=== PATIENT | female | born 1955 | race Caucasian/White ===

== ENCOUNTER 2016-12-01 13:06 | Emergency (ER) | payer OTHER ==
[~2016-12-01] VITALS: Ht 162.6 cm; Wt 79.4 kg
[~2016-12-01 13:06] MED LIST: ASPIRIN81 M2 PO; CENTRUM SILVER1 EAC4 PO; CITRACAL + BON1 EACH PO; DHEA50 MG PO; FISH OIL 1,001000 M2 PO; FLEXERIL PO; IBUPROFEN 800800 M1 PO; LISINOPRIL20 MG PO; LYRICA 50 MG50 MG PO; PREVACID30 MG PO; TOPROL XL100 MG PO; TRAMADOL 50 MG50 MG PO; VENTOLIN HFA 1818 GM INH; VITAMIN B-12500 MCG PO; VITAMIN D1000 UNI1 PO
[2016-12-01] MEDS ORDERED: NAPROSYN500 MG PO (16:01)
[2016-12-01] MEDS ORDERED: NORFLEX100 MG PO (16:01)
[2016-12-01 16:10] VITALS: BP 158/77
== END 2016-12-01 16:11 | disposition home or self-care (01) ==
LOC: ER 13:06
DX: S16.1XXA Strain of muscle, fascia and tendon at neck level, initial encounter (principal); I10 Essential (primary) hypertension; K21.9 Gastro-esophageal reflux disease without esophagitis; E78.00 Pure hypercholesterolemia, unspecified; M79.7 Fibromyalgia; Z90.710 Acquired absence of both cervix and uterus; Z88.5 Allergy status to narcotic agent; V49.40XA Driver injured in collision with unspecified motor vehicles in traffic accident, initial encounter; Y93.I9 Activity, other involving external motion; Y92.89 Other specified places as the place of occurrence of the external cause; Y99.8 Other external cause status

== ENCOUNTER 2021-02-21 15:09 | Emergency (ER) | payer OTHER ==
[~2021-02-21] VITALS: Ht 167.6 cm; Wt 77.1 kg
[~2021-02-21 15:09] MED LIST changes: +NAPROSYN500 MG PO; +NORFLEX100 MG PO
[2021-02-21 19:57] LABS: URINE BILIRUBIN NEGATIVE (Negative); URINE BLOOD NEGATIVE (Negative); URINE CLARITY CLEAR; URINE COLOR YELLOW; URINE GLUCOSE-RANDOM* NEGATIVE (Negative); URINE KETONES NEGATIVE (Negative); URINE LEUKOCYTES-REFLEX TRACE (Negative); URINE NITRITE-REFLEX NEGATIVE (Negative); URINE PROTEIN (DIPSTICK) NEGATIVE (Negative); URINE UROBILINOGEN 0.2 E.U./dl (0.2-1.0)
[2021-02-21 20:35] LABS: ABSOLUTE NEUTROPHILS 7.6 thou/uL (1.4-8.2); BASOPHILS 0.8 % (0.0-2.0); EOSINOPHILS 3.2 % (0.0-3.0); HEMATOCRIT 42.8 % (37.0-47.0); HEMOGLOBIN 14.3 gm/dL (12.0-15.0); LYMPHOCYTES 30.3 % (24.0-44.0); MCH 30.3 pg (26.0-34.0); MCHC 33.4 g/dL (28.0-37.0); MCV 90.6 fL (80.0-100.0); MONOCYTES 6.3 % (1.0-8.0); PLATELET COUNT 317 thou/uL (150-400); POLYS 59.4 % (36.0-66.0); RBC 4.72 mil/uL (4.20-5.00); RDW 13.1 % (10.5-14.5); WBC 12.8 thou/uL (4.0-11.0)
[2021-02-21 20:37] LABS: CREATININE 0.8 mg/dL (0.6-1.0); POTASSIUM 3.9 mmol/L (3.5-5.1)
[2021-02-21 20:44] LABS: ALBUMIN 4.3 g/dL (3.4-5.0); TOTAL BILIRUBIN 0.7 mg/dL (0.2-1.0); TOTAL PROTEIN 7.9 g/dL (6.4-8.2)
[2021-02-21] MEDS ORDERED: AMOX TR-K CLV1 EAC3 PO (22:47)
[2021-02-21] MEDS ORDERED: OXYCODONE-APAP1 EAC4 PO (22:49)
[2021-02-21] MEDS ORDERED: NEURONTIN 400400 M1 PO (22:50)
[2021-02-21] MEDS ORDERED: HYDROCHLOROTH12.5 M2 PO (22:56)
[2021-02-21] MEDS ORDERED: ALENDRONATE SOD70 MG PO (22:57)
[2021-02-22 01:18] VITALS: BP 104/52
== END 2021-02-22 01:19 | disposition home or self-care (01) ==
LOC: ER 15:09
PROVIDERS: Emergency Medicine; Nurse Practitioner Family
DX: R10.31 Right lower quadrant pain (principal); Z20.822 Contact with and (suspected) exposure to COVID-19; R05.9 Cough, unspecified; I10 Essential (primary) hypertension; K21.9 Gastro-esophageal reflux disease without esophagitis; Z79.899 Other long term (current) drug therapy; Z88.6 Allergy status to analgesic agent